=== PATIENT | female | born 1990 | race African-American/Black ===

== ENCOUNTER 2019-09-15 08:01 | Emergency (ER) | payer SELFPAY ==
[~2019-09-15] VITALS: Ht 170.2 cm; Wt 52.2 kg
[2019-09-15 08:05] VITALS: BP 131/89
[2019-09-15] MEDS ORDERED: WELLBUTRIN SR150 M1 PO (08:26)
[2019-09-15 08:28] VITALS: BP 127/85
--- NOTE | 2019-09-15 08:30 | Emergency Room Report ---
History of Present Illness General Chief Complaint: Medication Refill Source: Patient Present Illness HPI Disclaimer: Please note that this report is being documented using [employer] technology. This can lead to erroneous entry secondary to incorrect interpretation by the dictating instrument. HPI: 29-year-old female presents for medication refill. Patient has a history of depression. She states she just moved here from [place]. She was previously taking 150 mg of Wellbutrin twice daily but ran out 1 week ago. She states she is currently establishing care with primary physician. She denies any suicidal homicidal ideation. No other medical complaints at this time. PMH: Depression PSH: Reviewed Social Hx: Patient smokes marijuana occasional drinking denies illicit drug use Allergies: Coded Allergies: No Known Allergies (Unverified , 09/15/19) COVID-19 Screening Contact w/high risk pt: No Recent Travel to affected area: No Experienced COVID-19 symptoms?: No Patient History Last Menstrual Period: 14 days Now: No Nursing Documentation-PMH Past Medical History: No History, Except For History Of Psychiatric Problem: Yes - mild depression Review of Systems All Other Systems: negative except mentioned in HPI Physical Exam Vital Signs Date Time Temp Pulse Resp B/P (MAP) Pulse Ox O2 Delivery O2 Flow Rate FiO2 09/15/19 08:05 98.1 100 19 131/89 (103) 100 Room Air Sp02 EP Interpretation: reviewed, normal General Appearance: well appearing, no apparent distress Head: normocephalic, atraumatic Eyes: bilateral eye PERRL, bilateral eye EOMI ENT: hearing grossly normal, moist mucus membranes Neck: full range of motion, supple Respiratory: lungs clear, normal breath sounds, no rhonchi, no respiratory distress, no retraction, no wheezing Cardiovascular #1: normal peripheral pulses, no murmur, tachycardia Gastrointestinal: non tender, soft, non-distended, no guarding Neurologic: alert, oriented x3, no focal defects Skin: normal color, warm/dry Medical Decision Making Diagnostic Impression: Primary Impression: Encounter for medication refill ER Course MDM: Patient presents for medication refill. She was in no acute distress on exam and nontoxic-appearing. Differential included encounter for medication refill, history of depression, low suspicion for emergent medical process at this time. Plan-patient was provided a refill of her medication. I expressed the importance of obtaining a primary care physician as she is planning to permanently moved to the [facility]. Recommended that she establish care so she obtain further prescription refills and be monitored by her primary doctor. She expressed understanding the plan. Stable for discharge. Last Vital Signs Date Time Temp Pulse Resp B/P (MAP) Pulse Ox O2 Delivery O2 Flow Rate FiO2 09/15/19 08:05 98.1 100 19 131/89 100 Room Air Disposition: HOME, SELF-CARE Condition: Stable Scripts Bupropion HCl (Wellbutrin Sr) 150 Mg Tablet.er 150 MG PO TWICE A DAY, #60 TAB Prov: Shahab Martin M.D. 09/15/19 Referrals: [facility] Patient Instructions: Depression, Adult, [id number] Additional Instructions: Please arrange follow-up with a primary doctor for future refills of your medication. Patient is instructed to follow-up with her primary care doctor, primary care clinic or [facility] in 1 to 2 days. Patient instructed to return for any worsening symptoms or concerns. Please note that the documentation in this note was used with [employer] technology. Pleae be advised that this may lead to erroneous text due to misinterpretation by the dictation software Shahab Martin M.D. September 15, 2019 08:30
== END 2019-09-15 08:28 | disposition home or self-care (01) ==
LOC: EMR 08:25
DX: Z76.0 Encounter for issue of repeat prescription (principal); F32.9 Major depressive disorder, single episode, unspecified; Z79.899 Other long term (current) drug therapy
CPT/HCPCS: 99282